=== PATIENT | female | born 1980 ===

== ENCOUNTER 2021-07-01 12:17 | Emergency (ER) | payer SELFPAY ==
[~2021-07-01] VITALS: Ht 165 cm; Wt 52.7 kg
[2021-07-01 12:42] LABS: BASOPHILS % (AUTO) 0 % (0-10); EOSINOPHILS # (AUTO) 0.1 10^3/uL (0.0-0.3); EOSINOPHILS % (AUTO) 2 % (0-10); HEMATOCRIT 36 % (35-52); HEMOGLOBIN 11.5 g/dL (11.5-16.0); LYMPHOCYTES # (AUTO) 2.3 10^3/uL (1.0-4.0); LYMPHOCYTES % (AUTO) 42 % (12-44); MEAN CORPUSCULAR HEMOGLOBIN 28 pg (25-34); MEAN CORPUSCULAR HGB CONC 32 g/dL (32-36); MEAN CORPUSCULAR VOLUME 88 fL (80-99); MEAN PLATELET VOLUME 11.3 fL (9.0-12.2); MONOCYTES # (AUTO) 0.3 10^3/uL (0.0-1.0); MONOCYTES % (AUTO) 5 % (0-12); NEUTROPHILS # (AUTO) 2.7 10^3/uL (1.8-7.8); NEUTROPHILS % (AUTO) 50 % (42-75); PLATELET COUNT 193 10^3/uL (130-400); WHITE BLOOD COUNT 5.4 10^3/uL (4.3-11.0)
[2021-07-01 12:53] LABS: ALBUMIN 4.2 GM/DL (3.2-4.5); INR 0.9 (0.8-1.4); POTASSIUM 3.5 MMOL/L (3.6-5.0)
[2021-07-01 12:54] LABS: CALCIUM 9.7 MG/DL (8.5-10.1)
[2021-07-01 12:56] LABS: TOTAL PROTEIN 7.3 GM/DL (6.4-8.2)
[2021-07-01 12:57] LABS: BILIRUBIN,TOTAL 0.5 MG/DL (0.1-1.0)
[2021-07-01 12:59] LABS: CREATININE SERUM 0.73 MG/DL (0.60-1.30)
--- NOTE | 2021-07-01 13:00 | Diagnostic Imaging Report ---
Indication: Chest pain. Comparison: None. Discussion: Single portable upright frontal view of the chest was obtained. Normal heart size. No consolidation, pleural fluid, or pneumothorax. No osseous abnormality. Impression: 1. Negative chest. Dictated by: Dictated on workstation # [id number]
[2021-07-01 13:02] LABS: MAGNESIUM 1.9 MG/DL (1.6-2.4)
--- NOTE | 2021-07-01 13:48 | ED Chest Pain ---
General Chief Complaint: Chest Wall Stated Complaint: SOA/CHEST PAIN/WEAKNESS Nursing Triage Note: AMB TO ED ACCOMPIED BY DAUGHTER. PATIENT SPEAKS NIGERIAN DAUGHTER REPORTS THAT WAS LYING DOWN WITH ONSET OF CHEST PAIN TENDER TO TOUCH. AND WORSE WITH INSPIRATION. PATIENT APPEARS TO BE HYPERVENTLATING. ON ADMIT. Source: patient Exam Limitations: no limitations (MARIAMA ARMSTRONG) History of Present Illness Date Seen by Provider: Jul 01, 2021 Time Seen by Provider: 13:46 Initial Comments Patient is a 40-year-old female who is speaking presents ED with daughter for chest pain. This occurred this morning when she was lying down. Started having this pressure felt like her chest and back with squeezing. She had some shortness of breath and felt like her upper and lower extremities were shaking. This has improved. Last episode was in March. She has been having these episodes since 14 years of age. No known cardiac history. No history of hypertension, diabetes, high cholesterol, smoking. No vomiting or diarrhea. Denies of any specific abdominal pain however does have some generalized upper abdominal discomfort. No history of acid reflux. No worsening pain with eating. No fever, recent travels or surgeries, leg swelling. Patient in no acute distress. She states she does get anxious about things. Denies any trauma (MARIAMA ARMSTRONG) Allergies and Home Medications Allergies Coded Allergies: No Known Drug Allergies (Unverified , 07/01/21) Patient Home Medication List Home Medication List Reviewed: Yes (MARIAMA ARMSTRONG) Hydroxyzine HCl (Hydroxyzine HCl) 50 Mg Tablet, 50 MG PO Q6H PRN for ANXIETY Prescribed by: KRANTHI GOMES on 07/01/21 1400 Review of Systems Review of Systems Constitutional: No see HPI, No chills, No diaphoresis, No fever, No malaise, No weakness EENTM: No Eye Pain, No Ear Pain, No Mouth Pain Respiratory: Denies Cough, Denies SOA With Exertion, Denies SOA at Rest Cardiovascular: Chest Pain; Denies Edema, Denies Irregular Heart Rate, Denies Lightheadedness Gastrointestinal: Abdominal Pain; Denies Constipated, Denies Diarrhea, Denies Nausea, Denies Vomiting Genitourinary: Denies Burning, Denies Discharge Musculoskeletal: No see HPI, No back pain, No gout, No joint pain Skin: No change in color, No change in hair/nails (MARIAMA ARMSTRONG) All Other Systems Reviewed Negative Unless Noted: Yes (MARIAMA ARMSTRONG) Past Qvzzsnv-Hlvbcy-Huhxlp Hx Patient Social History Tobacco Use?: No Substance use?: No Alcohol Use?: No Pt feels they are or have been: No (MARIAMA ARMSTRONG) Physical Exam Vital Signs Vital Signs - First Documented 07/01/21 12:23 Temp 36.2 Pulse 67 Resp 18 B/P (MAP) 176/81 (112) Pulse Ox 100 O2 Delivery Room Air (SALVADOR THOMPSON MD) Vital Signs Capillary Refill : Less Than 3 Seconds (MARIAMA ARMSTRONG) Height, Weight, BMI Height: '" Weight: lbs. oz. kg; 19.00 BMI Method: General Appearance: No Apparent Distress, WD/WN HEENT: PERRL/EOMI, TMs Normal, Normal ENT Inspection, Pharynx Normal Neck: Full Range of Motion, Normal Inspection, Non Tender, Supple Respiratory: Chest Non Tender, Lungs Clear, Normal Breath Sounds, No Accessory Muscle Use, No Respiratory Distress Cardiovascular: Regular Rate, Rhythm, No Edema, No Gallop, No JVD, No Murmur Gastrointestinal: Normal Bowel Sounds, No Organomegaly, No Pulsatile Mass, Soft Neurologic/Psychiatric: Alert, Oriented x3, No Motor/Sensory Deficits, Normal Mood/Affect Skin: Normal Color, Warm/Dry (MARIAMA ARMSTRONG) Progress/Results/Core Measures Results/Orders Lab Results Laboratory Tests Test 07/01/21 12:34 Range/Units White Blood Count 5.4 4.3-11.0 10^3/uL Red Blood Count 4.05 3.80-5.11 10^6/uL Hemoglobin 11.5 11.5-16.0 g/dL Hematocrit 36 35-52 % Mean Corpuscular Volume 88 80-99 fL Mean Corpuscular Hemoglobin 28 25-34 pg Mean Corpuscular Hemoglobin Concent 32 32-36 g/dL Red Cell Distribution Width 13.4 10.0-14.5 % Platelet Count 193 130-400 10^3/uL Mean Platelet Volume 11.3 9.0-12.2 fL Immature Granulocyte % (Auto) 0 % Neutrophils (%) (Auto) 50 42-75 % Lymphocytes (%) (Auto) 42 12-44 % Monocytes (%) (Auto) 5 0-12 % Eosinophils (%) (Auto) 2 0-10 % Basophils (%) (Auto) 0 0-10 % Neutrophils # (Auto) 2.7 1.8-7.8 10^3/uL Lymphocytes # (Auto) 2.3 1.0-4.0 10^3/uL Monocytes # (Auto) 0.3 0.0-1.0 10^3/uL Eosinophils # (Auto) 0.1 0.0-0.3 10^3/uL Basophils # (Auto) 0.0 0.0-0.1 10^3/uL Immature Granulocyte # (Auto) 0.0 0.0-0.1 10^3/uL Prothrombin Time 13.0 12.2-14.7 SEC INR Comment 0.9 0.8-1.4 Activated Partial Thromboplast Time 24 24-35 SEC Sodium Level 136 135-145 MMOL/L Potassium Level 3.5 L 3.6-5.0 MMOL/L Chloride Level 107 98-107 MMOL/L Carbon Dioxide Level 15 L 21-32 MMOL/L Anion Gap 14 5-14 MMOL/L Blood Urea Nitrogen 11 7-18 MG/DL Creatinine 0.73 0.60-1.30 MG/DL Estimat Glomerular Filtration Rate 105 BUN/Creatinine Ratio 15 Glucose Level 134 H 70-105 MG/DL Calcium Level 9.7 8.5-10.1 MG/DL Corrected Calcium 9.5 8.5-10.1 MG/DL Magnesium Level 1.9 1.6-2.4 MG/DL Total Bilirubin 0.5 0.1-1.0 MG/DL Aspartate Amino Transf (AST/SGOT) 74 H 5-34 U/L Alanine Aminotransferase (ALT/SGPT) 41 0-55 U/L Alkaline Phosphatase 62 40-136 U/L Myoglobin 10.1 10.0-92.0 NG/ML Troponin I < 0.028 <0.028 NG/ML Total Protein 7.3 6.4-8.2 GM/DL Albumin 4.2 3.2-4.5 GM/DL (SALVADOR THOMPSON MD) My Orders Orders - SALVADOR THOMPSON MD Cbc With Automated Diff (07/01/21 12:28) Magnesium (07/01/21 12:28) Chest 1 View, Ap/Pa Only (07/01/21:) Ekg Tracing (07/01/21:) Comprehensive Metabolic Panel (07/01/21 12:) Myoglobin Serum (07/01/21 12:) Protime With Inr (07/01/21:) Partial Thromboplastin Time (07/01/21:) O2 (07/01/21:) Monitor-Rhythm Ecg Trace Only (07/01/21:) Ed Iv/Invasive Line Start (07/01/21:) Troponin I [place] (07/01/21:) (SALVADOR THOMPSON MD) Vital Signs/I&O 07/01/21 07/01/21 12:23 14:17 Temp 36.2 Pulse 67 60 Resp 18 18 B/P (MAP) 176/81 (112) 100/61 Pulse Ox 100 98 O2 Delivery Room Air Room Air (SALVADOR THOMPSON MD) Blood Pressure Mean: 112 Comment Sinus rhythm, 66 bpm, QRS duration 86 MS, QTc 475 MS (MARIAMA ARMSTRONG) Departure Communication (Admissions) Patient vital signs stable. She is not tachycardic or hypoxic.. She is not on control. No recent travels or surgeries. Intermittent chest pain for the past 16 years. Last episode in March. She was sitting at home when she had a squeezing sensation of her chest felt short of breath and shaking in her hands and feet. This has improved. Patient heart score is 1. Patient afebrile. EKG without any evidence of ST elevation, depression, T wave inversion. Patient cardiac work-up unremarkable. Low risk for PE. No leg swelling or pain. No blood disorders. No history of hypertension, diabetes, high cholesterol. She denies any pain with eating. Denies waking up with pain. She has very minimal epigastric tenderness. Discussed potential causes. She states she does have episodes of feeling anxious which may be associated her symptoms. Discussed gastritis, esophagitis. No worsening pain with laying down. She is not hypox ic. No recent URI. Potential pleurisy type pain versus GI versus anxiety. Patient would likely benefit with outpatient follow-up. She does not have a primary care physician. Establish care for [facility]. Discharged with hydroxyzine if this does occur during these episodes. She was given dose of Ativan with improvement here. Patient with a steady gait. Return precautions were discussed with patient. (MARIAMA ARMSTRONG) Impression Primary Impression: Atypical chest pain Disposition: HOME, SELF-CARE Condition: Stable Departure-Patient Inst. Decision time for Depature: 13:59 (MARIAMA ARMSTRONG) Referrals: [facility] – [place] Patient Instructions: Chest Pain, Adult ED Scripts Hydroxyzine HCl (Hydroxyzine HCl) 50 Mg Tablet 50 MG PO Q6H PRN for ANXIETY, #14 TAB Prov: MARIAMA ARMSTRONG 07/01/21 ATTENDING PHYSICIAN NOTE: I was physically present as attending physician in the emergency department during the care of this patient, but I was not directly involved in the decision making or delivery of care for this patient. (SALVADOR THOMPSON MD) MARIAMA ARMSTRONG Jul 01, 2021 13:48 SALVADOR THOMPSON MD Jul 01, 2021 18:24
[2021-07-01] MEDS ORDERED: LORazepam INJ 2 MG/ML (ATIVAN) VIAL IVP STA (13:57)
[2021-07-01] MEDS ORDERED: HYDR50TA76 PO (14:00)
[2021-07-01 14:17] VITALS: BP 100/61
== END 2021-07-01 14:22 | disposition home or self-care (01) ==
LOC: ER 12:19
DX: R07.89 Other chest pain (principal)
CPT/HCPCS: 36415; 71045; 80053; 83735; 83874; 84484; 85025; 85610; 85730; 93005; 93041